=== PATIENT | male | born 1940 | race Caucasian/White ===

== ENCOUNTER 2020-04-21 12:03 | Observation (INO) ==
[2020-04-21 12:54] LABS: INR 1.1; Prothrombin Time 13.2 Seconds (9.4-12.1)
[2020-04-21 12:57] LABS: Activated Partial Thrombo Time 33.4 Seconds (26.0-36.0)
[2020-04-21 13:06] LABS: Magnesium 2.1 mg/dL (1.6-2.6); Troponin I < 0.03 ng/mL (< 0.04)
[2020-04-21 13:49] LABS: Bilirubin,Urine Negative (Negative); Blood,Urine Negative (Negative); Clarity,Urine Clear (Clear); Color,Urine Light-Yellow (Yellow); Glucose,Urine (UA) Normal (Normal); Ketones,Urine Negative (Negative); Leukocyte Esterase,Urine Negative (Negative); Nitrite,Urine Negative (Negative); Protein,Urine Negative (Neg-Trace); Specific Gravity,Urine 1.015 (1.010-1.025); Urobilinogen,Urine Normal (Normal)
[2020-04-21] MEDS ORDERED: Naloxone 0.4 MG/ML INJ IVP PRN (14:44)
[2020-04-21] MEDS ORDERED: *HR* Heparin 5,000 UNIT/ML VIAL IVP ONE (15:24)
[2020-04-21] MEDS ORDERED: *HR* Heparin 5,000 UNIT/ML VIAL IVP PRN ×2 (15:24)
[2020-04-21] MEDS ORDERED: Ondansetron 4 MG/2 ML VIAL IVP PRN (15:24)
[2020-04-21] MEDS ORDERED: *HR* HYDROcodone/Acet 5/325 mg TABLET PO PRN (15:24)
[2020-04-21] MEDS ORDERED: Perflutren Lipid Microsphere 1.3 ML in 0.9 % Sodium Chloride 8.7 ML IVP PRN (15:29)
[2020-04-21] MEDS ORDERED: Heparin 25,000UNIT/250ML 1/2NS 25,000 UNIT/250 ML IV.SOLN IVC SCH (15:30)
[2020-04-21 15:59] LABS: Basophils # 0.1 K/mcL (0.0-0.2); Basophils % 1.2 %; Eosinophils # 0.4 K/mcL (0.0-0.6); Hematocrit 44.7 % (37.5-50.1); Hemoglobin 14.2 g/dL (12.9-16.9); Immature Granulocytes % 0.2 % (0-4); Lymphocytes # 2.6 K/mcL (0.6-4.6); Lymphocytes % 42.7 %; Mean Corpuscular HGB Conc 31.8 g/dL (31.6-35.5); Mean Corpuscular Hemoglobin 29.9 pg (28.0-33.3); Mean Corpuscular Volume 94.1 fL (83.0-100.0); Mean Platelet Volume 10.8 fL (9.4-12.4); Monocytes # 0.5 K/mcL (0.0-1.3); Monocytes % 8.9 %; Neutrophils # 2.4 K/mcL (1.6-8.9); Platelet Count 195 K/mcL (140-400); Red Blood Count 4.75 M/mcL (4.19-5.50); Red Cell Distribution Width 14.5 % (11.5-14.5)
[2020-04-21 17:35] LABS: INR 1.2; Prothrombin Time 13.9 Seconds (9.4-12.1)
[2020-04-21 17:36] LABS: Hematocrit 44.4 % (37.5-50.1); Hemoglobin 14.3 g/dL (12.9-16.9); Mean Corpuscular HGB Conc 32.2 g/dL (31.6-35.5); Mean Corpuscular Volume 93.3 fL (83.0-100.0); Mean Platelet Volume 10.9 fL (9.4-12.4); Platelet Count 184 K/mcL (140-400); Red Blood Count 4.76 M/mcL (4.19-5.50); Red Cell Distribution Width 14.5 % (11.5-14.5); White Blood Count 6.1 K/mcL (4.3-11.1)
[2020-04-21 17:42] LABS: Heparin anti-factor XA UFH 1.27 IU/mL (0.30-0.70)
[2020-04-21 17:45] LABS: Alanine Aminotransferase 15 Units/L (7-52); Albumin 3.6 g/dL (3.5-5.7); Albumin/Globulin Ratio 1.2 (1.1-2.2); Alkaline Phosphatase 102 Units/L (34-104); Aspartate Amino Transferase 22 Units/L (13-39); BUN/Creatinine Ratio 24 (6-26); Bilirubin,Total 0.7 mg/dL (0.3-1.0); Blood Urea Nitrogen 18 mg/dL (8-23); Calcium 8.7 mg/dL (8.6-10.3); Carbon Dioxide 26 mEq/L (23-29); Chloride 108 mEq/L (98-107); Globulin 2.9 g/dL (2.4-3.5); Glucose 97 mg/dL (70-105); Osmolality,Calculated 290 (280-300); Potassium 4.1 mEq/L (3.5-5.1); Sodium 139 mEq/L (136-145); Total Protein 6.5 g/dL (6.4-8.9); eGFR For African Americans > 60 (> 60); eGFR For Non-African Americans > 60 (> 60)
[2020-04-21] MEDS: Furosemide 20 MG/2 ML VIAL IVP SCH (19:57)
[2020-04-22 00:48] LABS: Troponin I < 0.03 ng/mL (< 0.04)
[2020-04-22] MEDS: Furosemide 20 MG/2 ML VIAL IVP SCH (08:11)
[2020-04-22] MEDS ORDERED: Metoprolol XL (24 HR) Succ 25 MG TAB.ER.24H PO SCH (09:00)
[2020-04-22 10:17] VITALS: BP 119/68
[2020-04-22] MEDS ORDERED: *HR* Rivaroxaban 10 MG TABLET PO ONE (11:00)
[2020-04-22 12:48] LABS: Chol/HDL Ratio 5.3 (0-4.9); Cholesterol 185 mg/dL (< 200); HDL Cholesterol 35 mg/dL (40-59); LDL Cholesterol,Calculated 130 mg/dL (< 100); Triglycerides 100 mg/dL (< 150)
[2020-04-23] MEDS ORDERED: *HR* Rivaroxaban 10 MG TABLET PO SCH (17:00)
== END 2020-04-22 15:40 | disposition home or self-care (01) ==
LOC: EMEROOARM 12:03 → 2ANU 12:03 → SUATTDRO 15:50 → 2ANU 16:32
PROVIDERS: ADMIT Family Medicine; ATTEND Internal Medicine

== ENCOUNTER 2020-09-16 08:23 | Inpatient (IN) ==
[2020-09-16] MEDS ORDERED: Naloxone 0.4 MG/ML INJ IVP PRN (10:33)
[2020-09-16 11:33] LABS: Basophils # 0.1 K/mcL (0.0-0.2); Basophils % 1.4 %; Eosinophils # 0.3 K/mcL (0.0-0.6); Eosinophils % 6.1 %; Hemoglobin 12.8 g/dL (12.9-16.9); Immature Granulocytes % 0.2 % (0-4); Lymphocytes # 1.3 K/mcL (0.6-4.6); Mean Corpuscular HGB Conc 32.8 g/dL (31.6-35.5); Mean Corpuscular Volume 91.5 fL (83.0-100.0); Monocytes # 0.5 K/mcL (0.0-1.3); Monocytes % 10.7 %; Neutrophils # 2.8 K/mcL (1.6-8.9); Platelet Count 156 K/mcL (140-400); Red Blood Count 4.26 M/mcL (4.19-5.50); Red Cell Distribution Width 15.1 % (11.5-14.5); Segmented Neutrophils % 55.6 %; White Blood Count 5.1 K/mcL (4.3-11.1)
[2020-09-16 11:40] LABS: BUN/Creatinine Ratio 22 (6-26); Blood Urea Nitrogen 19 mg/dL (8-23); Calcium 8.9 mg/dL (8.6-10.3); Carbon Dioxide 26 mEq/L (23-29); Chloride 107 mEq/L (98-107); Glucose 113 mg/dL (70-105); Osmolality,Calculated 287 (280-300); Potassium 3.9 mEq/L (3.5-5.1); Sodium 137 mEq/L (136-145); eGFR For African Americans > 60 (> 60); eGFR For Non-African Americans > 60 (> 60)
[2020-09-16] MEDS: Furosemide 20 MG TABLET PO SCH (13:15)
[2020-09-16] MEDS: *HR* Rivaroxaban 10 MG TABLET PO SCH (16:37)
[2020-09-16] MEDS: Gabapentin 300 MG CAPSULE PO SCH ×2 (16:37→23:44)
[2020-09-17] MEDS: Gabapentin 300 MG CAPSULE PO SCH ×3 (07:55→22:05)
[2020-09-17] MEDS: Metoprolol XL (24 HR) Succ 25 MG TAB.ER.24H PO SCH (07:55)
[2020-09-17] MEDS: Loratadine 10 MG TABLET PO SCH (07:55)
[2020-09-17] MEDS: Aspirin Enteric Coated 81 MG Tablet PO SCH (07:55)
[2020-09-17] MEDS: Furosemide 20 MG TABLET PO SCH (07:55)
[2020-09-17] MEDS: *HR* Rivaroxaban 10 MG TABLET PO SCH (17:54)
[2020-09-18 04:02] LABS: BUN/Creatinine Ratio 25 (6-26); Blood Urea Nitrogen 22 mg/dL (8-23); Calcium 8.9 mg/dL (8.6-10.3); Carbon Dioxide 28 mEq/L (23-29); Chloride 107 mEq/L (98-107); Glucose 108 mg/dL (70-105); Magnesium 2.3 mg/dL (1.6-2.6); Osmolality,Calculated 292 (280-300); Potassium 4.2 mEq/L (3.5-5.1); Sodium 139 mEq/L (136-145); eGFR For African Americans > 60 (> 60); eGFR For Non-African Americans > 60 (> 60)
[2020-09-18] MEDS: Gabapentin 300 MG CAPSULE PO SCH (10:14)
[2020-09-18] MEDS: Furosemide 20 MG TABLET PO SCH (10:15)
[2020-09-18] MEDS: Metoprolol XL (24 HR) Succ 25 MG TAB.ER.24H PO SCH (10:15)
[2020-09-18] MEDS: Loratadine 10 MG TABLET PO SCH (10:15)
[2020-09-18] MEDS: Aspirin Enteric Coated 81 MG Tablet PO SCH (10:15)
[2020-09-18] MEDS ORDERED: 0.9 % Sodium Chloride 500 ML IVC ONE (11:03)
[2020-09-18] MEDS ORDERED: *HR* Midazolam HCl 2 MG/2 ML VIAL IVP PRN (11:03)
[2020-09-18] MEDS ORDERED: *HR* Midazolam HCl 5 MG/5 ML VIAL IVP ONE ×2 (11:15→11:16)
[2020-09-18] MEDS: *HR* FentaNYL (PF) 100 MCG/2 ML VIAL IVP PRN ×2 (11:30→11:35)
[2020-09-18 15:14] VITALS: BP 116/55
== END 2020-09-18 16:09 | disposition home or self-care (01) | DRG 309 ==
LOC: CDU → 2NENU 15:06
PROVIDERS: ADMIT Internal Medicine Clinical Cardiac Electrophysiology; ATTEND Internal Medicine Clinical Cardiac Electrophysiology

== ENCOUNTER 2020-10-03 14:46 | Observation (INO) ==
[2020-10-03 15:17] LABS: Basophils # 0.1 K/mcL (0.0-0.2); Basophils % 1.1 %; Eosinophils # 0.4 K/mcL (0.0-0.6); Eosinophils % 6.2 %; Hematocrit 43.6 % (37.5-50.1); Hemoglobin 14.1 g/dL (12.9-16.9); Immature Granulocytes % 0.2 % (0-4); Lymphocytes % 31.2 %; Mean Corpuscular HGB Conc 32.3 g/dL (31.6-35.5); Mean Corpuscular Hemoglobin 29.9 pg (28.0-33.3); Mean Corpuscular Volume 92.6 fL (83.0-100.0); Mean Platelet Volume 11.2 fL (9.4-12.4); Monocytes # 0.7 K/mcL (0.0-1.3); Monocytes % 10.5 %; Neutrophils # 3.3 K/mcL (1.6-8.9); Platelet Count 180 K/mcL (140-400); Red Blood Count 4.71 M/mcL (4.19-5.50); Red Cell Distribution Width 14.4 % (11.5-14.5); Segmented Neutrophils % 50.8 %; White Blood Count 6.5 K/mcL (4.3-11.1)
[2020-10-03 15:50] LABS: Alanine Aminotransferase 15 Units/L (7-52); Albumin/Globulin Ratio 1.2 (1.1-2.2); Alkaline Phosphatase 78 Units/L (34-104); Aspartate Amino Transferase 21 Units/L (13-39); BUN/Creatinine Ratio 19 (6-26); Bilirubin,Total 0.8 mg/dL (0.3-1.0); Blood Urea Nitrogen 15 mg/dL (8-23); Calcium 9.3 mg/dL (8.6-10.3); Carbon Dioxide 24 mEq/L (23-29); Chloride 106 mEq/L (98-107); Globulin 3.4 g/dL (2.4-3.5); Glucose 94 mg/dL (70-105); Osmolality,Calculated 287 (280-300); Potassium 4.3 mEq/L (3.5-5.1); Sodium 138 mEq/L (136-145); Total Protein 7.4 g/dL (6.4-8.9); Troponin I < 0.03 ng/mL (< 0.04); eGFR For African Americans > 60 (> 60); eGFR For Non-African Americans > 60 (> 60)
[2020-10-03] MEDS ORDERED: Aspirin 325 MG TABLET PO ONE (16:00)
[2020-10-03] MEDS ORDERED: MOM Conc 10 ML UD.LIQ PO PRN (16:40)
[2020-10-03] MEDS ORDERED: Melatonin 3 MG TABLET PO PRN (16:40)
[2020-10-03] MEDS ORDERED: Ondansetron ODT 4 MG TAB.RAPDIS SL PRN (16:40)
[2020-10-03] MEDS ORDERED: Mag Hydrox/Al Hydrox/Simeth 30 ML UDC PO PRN (16:40)
[2020-10-03] MEDS ORDERED: Naloxone 0.4 MG/ML INJ IVP PRN (16:40)
[2020-10-03] MEDS ORDERED: Furosemide 40 MG/4 ML VIAL IVP ONE (16:47)
[2020-10-03] MEDS ORDERED: Perflutren Lipid Microsphere 1.3 ML in 0.9 % Sodium Chloride 8.7 ML IVP PRN (17:09)
[2020-10-03] MEDS: *HR* Rivaroxaban 10 MG TABLET PO SCH (19:09)
[2020-10-03] MEDS: Gabapentin 300 MG CAPSULE PO SCH (20:05)
[2020-10-04 03:16] LABS: Hematocrit 41.9 % (37.5-50.1); Hemoglobin 13.4 g/dL (12.9-16.9); Mean Corpuscular Hemoglobin 29.8 pg (28.0-33.3); Mean Corpuscular Volume 93.1 fL (83.0-100.0); Mean Platelet Volume 11.1 fL (9.4-12.4); Platelet Count 156 K/mcL (140-400); Red Cell Distribution Width 14.5 % (11.5-14.5); White Blood Count 5.4 K/mcL (4.3-11.1)
[2020-10-04 03:40] LABS: Alanine Aminotransferase 13 Units/L (7-52); Albumin 3.7 g/dL (3.5-5.7); Albumin/Globulin Ratio 1.2 (1.1-2.2); Alkaline Phosphatase 70 Units/L (34-104); Aspartate Amino Transferase 19 Units/L (13-39); BUN/Creatinine Ratio 23 (6-26); Bilirubin,Total 0.7 mg/dL (0.3-1.0); Blood Urea Nitrogen 19 mg/dL (8-23); Calcium 9.1 mg/dL (8.6-10.3); Carbon Dioxide 28 mEq/L (23-29); Chloride 107 mEq/L (98-107); Globulin 3.2 g/dL (2.4-3.5); Glucose 97 mg/dL (70-105); Osmolality,Calculated 292 (280-300); Potassium 3.9 mEq/L (3.5-5.1); Sodium 140 mEq/L (136-145); Total Protein 6.9 g/dL (6.4-8.9); eGFR For African Americans > 60 (> 60); eGFR For Non-African Americans > 60 (> 60)
[2020-10-04] MEDS: Aspirin Enteric Coated 81 MG Tablet PO SCH (09:27)
[2020-10-04] MEDS: Gabapentin 300 MG CAPSULE PO SCH ×3 (09:27→20:51)
[2020-10-04] MEDS: *HR* Rivaroxaban 10 MG TABLET PO SCH (16:39)
[2020-10-04] MEDS ORDERED: Acetaminophen 325 MG TABLET PO PRN (18:48)
[2020-10-05 03:08] LABS: Hematocrit 43.1 % (37.5-50.1); Hemoglobin 14.3 g/dL (12.9-16.9); Mean Corpuscular HGB Conc 33.2 g/dL (31.6-35.5); Mean Corpuscular Hemoglobin 30.4 pg (28.0-33.3); Mean Corpuscular Volume 91.5 fL (83.0-100.0); Platelet Count 165 K/mcL (140-400); Red Blood Count 4.71 M/mcL (4.19-5.50); Red Cell Distribution Width 14.3 % (11.5-14.5); White Blood Count 5.6 K/mcL (4.3-11.1)
[2020-10-05 03:28] LABS: BUN/Creatinine Ratio 20 (6-26); Blood Urea Nitrogen 18 mg/dL (8-23); Calcium 9.1 mg/dL (8.6-10.3); Carbon Dioxide 27 mEq/L (23-29); Chloride 105 mEq/L (98-107); Glucose 116 mg/dL (70-105); Osmolality,Calculated 291 (280-300); Potassium 4.1 mEq/L (3.5-5.1); Sodium 139 mEq/L (136-145); eGFR For African Americans > 60 (> 60); eGFR For Non-African Americans > 60 (> 60)
[2020-10-05] MEDS ORDERED: Regadenoson 0.4 MG/5 ML SYRINGE IVP ONE (07:31)
[2020-10-05] MEDS: Gabapentin 300 MG CAPSULE PO SCH ×4 (07:44→21:08)
[2020-10-05] MEDS: Furosemide 20 MG TABLET PO SCH (07:44)
[2020-10-05] MEDS: Aspirin Enteric Coated 81 MG Tablet PO SCH ×2 (07:44→12:28)
[2020-10-05] MEDS: *HR* Rivaroxaban 10 MG TABLET PO SCH (18:20)
[2020-10-06 05:34] LABS: Hematocrit 41.3 % (37.5-50.1); Hemoglobin 13.4 g/dL (12.9-16.9); Mean Corpuscular HGB Conc 32.4 g/dL (31.6-35.5); Mean Corpuscular Hemoglobin 29.8 pg (28.0-33.3); Mean Platelet Volume 11.4 fL (9.4-12.4); Platelet Count 165 K/mcL (140-400); Red Blood Count 4.49 M/mcL (4.19-5.50); Red Cell Distribution Width 14.3 % (11.5-14.5); White Blood Count 5.9 K/mcL (4.3-11.1)
[2020-10-06] MEDS: Gabapentin 300 MG CAPSULE PO SCH (09:08)
[2020-10-06] MEDS: Aspirin Enteric Coated 81 MG Tablet PO SCH (09:10)
[2020-10-06] MEDS: Furosemide 20 MG TABLET PO SCH (09:12)
[2020-10-06] MEDS ORDERED: Isosorbide MONOnitrate (24 HR) 30 MG TAB.ER.24H PO SCH (10:45)
[2020-10-06 11:23] VITALS: BP 115/73
== END 2020-10-06 15:07 | disposition home health service (06) ==
LOC: EMEROOARM 14:46 → 3BNU 14:46 → SUATTDRO 17:23 → 3BNU 17:24
PROVIDERS: ADMIT Internal Medicine; ATTEND Registered Nurse